=== PATIENT | male | born 1960 | race African-American/Black ===

== ENCOUNTER → 2016-10-29 | Outpatient (CLI) | payer MEDICARE, MEDICAID ==
[~2016-10-29] MED LIST: ASPI81TA21 PO; ATOR20TA PO; GLUCTAB PO; HYDR-3129 PO; IBUP800T23 PO; JANU100T PO; KETO2SHA5 TOP; LISI-360 PO; MOBI15TA PO; PRIL40CA PO; TIZA4 PO
[2016-10-29 11:56] LABS: ALKALINE PHOSPHATASE 73 U/L (45-117); ALT (GPT) 35 U/L (12-78); ANION GAP 8 MEQ/L (5-15); AST (GOT) 25 U/L (15-37); BICARBONATE 26.1 MEQ/L (21.0-32.0); BLOOD UREA NITROGEN 13 MG/DL (7-18); CHLORIDE 105 MEQ/L (98-107); GLOMERULAR FILTRATION RATE 111 ML/MIN (>89); GLUCOSE,FASTING 158 MG/DL (74-99); INDIRECT BILIRUBIN 0.4 MG/DL (0.0-0.8); POTASSIUM 3.7 MEQ/L (3.5-5.1); SODIUM (NA) 139 MEQ/L (136-145); TOTAL BILIRUBIN ADULT 0.5 MG/DL (0.2-1.0)
[2016-10-29 17:01] LABS: HEMOGLOBIN A1a 1.1 %; HEMOGLOBIN A1b 1.9 %; HEMOGLOBIN Ao 82.1 %; HEMOGLOBIN LA1C 2.4 %; HEMOGLOBIN P3 4.3 %
== END ==
LOC: CLAB 10:23
PROVIDERS: ATTEND Family Medicine Adult Medicine
DX: R73.09 Other abnormal glucose (principal); K72.91 Hepatic failure, unspecified with coma; E03.9 Hypothyroidism, unspecified; R19.5 Other fecal abnormalities; D56.5 Hemoglobin E-beta thalassemia
CPT/HCPCS: 36415; 80048; 80076; 83036; 84443

== ENCOUNTER → 2016-11-04 | Outpatient (CLI) | payer MEDICARE, MEDICAID | LOC: CLAB 13:07 | PROVIDERS: ATTEND Family Medicine Adult Medicine | DX: R19.5 Other fecal abnormalities (principal); R73.09 Other abnormal glucose; K72.91 Hepatic failure, unspecified with coma; E03.9 Hypothyroidism, unspecified; D56.5 Hemoglobin E-beta thalassemia; E11.9 Type 2 diabetes mellitus without complications | CPT/HCPCS: 82272 ==

== ENCOUNTER → 2017-01-08 | Outpatient (CLI) | payer MEDICARE, MEDICAID ==
[2017-01-08 09:05] LABS: AMPHETAMINE, URINE NEG (NEG); BARBITURATES, URINE NEG (NEG); COCAINE, URINE NEG (NEG)
[2017-01-08 09:14] LABS: ALKALINE PHOSPHATASE 64 U/L (45-117); ALT (GPT) 27 U/L (12-78); ANION GAP 7 MEQ/L (5-15); AST (GOT) 19 U/L (15-37); BICARBONATE 27.5 MEQ/L (21.0-32.0); BLOOD UREA NITROGEN 18 MG/DL (7-18); CHLORIDE 104 MEQ/L (98-107); GLOMERULAR FILTRATION RATE 80 ML/MIN (>89); GLUCOSE,FASTING 186 MG/DL (74-99); HDL CHOLESTEROL 53.8 MG/DL (40.0-60.0); LDL CHOLESTEROL 69 MG/DL (0-99); POTASSIUM 3.6 MEQ/L (3.5-5.1); SODIUM (NA) 138 MEQ/L (136-145); TOTAL BILIRUBIN ADULT 0.3 MG/DL (0.2-1.0)
[2017-01-08 13:49] LABS: HEMOGLOBIN A1a 1.5 %; HEMOGLOBIN A1b 1.9 %; HEMOGLOBIN Ao 81.7 %; HEMOGLOBIN LA1C 2.3 %
== END ==
LOC: CLAB 08:12
PROVIDERS: ATTEND Physician Assistant Medical
DX: E78.2 Mixed hyperlipidemia (principal); E78.00 Pure hypercholesterolemia, unspecified; E03.9 Hypothyroidism, unspecified; D56.5 Hemoglobin E-beta thalassemia; G89.4 Chronic pain syndrome; E11.9 Type 2 diabetes mellitus without complications; I25.10 Atherosclerotic heart disease of native coronary artery without angina pectoris; Z01.01 Encounter for examination of eyes and vision with abnormal findings; Z02.89 Encounter for other administrative examinations; Z79.891 Long term (current) use of opiate analgesic
CPT/HCPCS: 36415; 80053; 80061; 80307; 83036; 84443

== ENCOUNTER → 2017-04-09 | Outpatient (CLI) | payer MEDICARE, MEDICAID ==
[2017-04-09 16:06] LABS: ALT (GPT) 37 U/L (12-78); ANION GAP 9 MEQ/L (5-15); AST (GOT) 28 U/L (15-37); BICARBONATE 26.8 MEQ/L (21.0-32.0); BLOOD UREA NITROGEN 20 MG/DL (7-18); CHLORIDE 104 MEQ/L (98-107); GLOMERULAR FILTRATION RATE 84 ML/MIN (>89); GLUCOSE,FASTING 99 MG/DL (74-99); POTASSIUM 3.6 MEQ/L (3.5-5.1); SODIUM (NA) 140 MEQ/L (136-145)
[2017-04-09 16:08] LABS: ALKALINE PHOSPHATASE 64 U/L (45-117); HDL CHOLESTEROL 56.2 MG/DL (40.0-60.0); LDL CHOLESTEROL 107 MG/DL (0-99); TOTAL BILIRUBIN ADULT 0.6 MG/DL (0.2-1.0)
[2017-04-11 13:37] LABS: HEMOGLOBIN A1a 1.2 %; HEMOGLOBIN A1b 1.8 %; HEMOGLOBIN Ao 83.6 %; HEMOGLOBIN LA1C 1.3 %; HEMOGLOBIN P3 3.7 %
== END ==
LOC: CLAB 15:01
PROVIDERS: ATTEND Family Medicine
DX: E78.5 Hyperlipidemia, unspecified (principal); E11.9 Type 2 diabetes mellitus without complications; D56.5 Hemoglobin E-beta thalassemia; Z79.891 Long term (current) use of opiate analgesic; Z01.01 Encounter for examination of eyes and vision with abnormal findings
CPT/HCPCS: 36415; 80053; 80061; 83036

== ENCOUNTER → 2017-05-28 | Outpatient (CLI) | payer MEDICARE, MEDICAID ==
[2017-05-28 12:35] LABS: AUTOMATED NEUTROPHIL # 3.2 TH/MM3 (1.8-7.7); BASOPHIL % 0.4 % (0.0-2.0); EOSINOPHIL # 0.1 TH/MM3 (0-0.4); HEMATOCRIT 39.6 % (39.0-51.0); HEMO FLAGS DIFF FINAL; LYMPH % 29.1 % (9.0-44.0); LYMPHOCYTE # 1.6 TH/MM3 (1.0-4.8); MEAN CELL VOLUME 84.6 FL (80.0-100.0); MEAN CORPUSCULAR HEMOGLOBIN 28.4 PG (27.0-34.0); MEAN CORPUSCULAR HGB CONC 33.6 % (32.0-36.0); MONO % 8.7 % (0.0-8.0); NEUT % 59.8 % (16.0-70.0); PLATELET COUNT 153 TH/MM3 (150-450); RED BLOOD COUNT 4.68 MIL/MM3 (4.50-5.90); RED CELL DISTRIBUTION WIDTH 14.8 % (11.6-17.2); WHITE BLOOD COUNT 5.4 TH/MM3 (4.0-11.0)
[2017-05-28 12:57] LABS: ALT (GPT) 32 U/L (12-78); ANION GAP 9 MEQ/L (5-15); AST (GOT) 23 U/L (15-37); BICARBONATE 28.1 MEQ/L (21.0-32.0); BLOOD UREA NITROGEN 14 MG/DL (7-18); CHLORIDE 102 MEQ/L (98-107); GLOMERULAR FILTRATION RATE 95 ML/MIN (>89); GLUCOSE,FASTING 135 MG/DL (74-99); POTASSIUM 3.8 MEQ/L (3.5-5.1); SODIUM (NA) 139 MEQ/L (136-145)
[2017-05-28 13:22] LABS: ALKALINE PHOSPHATASE 65 U/L (45-117); HDL CHOLESTEROL 55.3 MG/DL (40.0-60.0); LDL CHOLESTEROL 90 MG/DL (0-99); TOTAL BILIRUBIN ADULT 0.6 MG/DL (0.2-1.0)
[2017-05-28 17:09] LABS: HEMOGLOBIN A1a 1.2 %; HEMOGLOBIN A1b 1.8 %; HEMOGLOBIN Ao 82.8 %; HEMOGLOBIN LA1C 2.1 %; HEMOGLOBIN P3 3.9 %
== END ==
LOC: CLAB 12:00
PROVIDERS: ATTEND Family Medicine
DX: E78.5 Hyperlipidemia, unspecified (principal); E11.9 Type 2 diabetes mellitus without complications; E78.00 Pure hypercholesterolemia, unspecified; D51.9 Vitamin B12 deficiency anemia, unspecified; D52.9 Folate deficiency anemia, unspecified; D56.5 Hemoglobin E-beta thalassemia; Z79.891 Long term (current) use of opiate analgesic; Z01.01 Encounter for examination of eyes and vision with abnormal findings
CPT/HCPCS: 36415; 80053; 80061; 82607; 82746; 83036; 85025

== ENCOUNTER → 2017-09-14 | Outpatient (CLI) | payer MEDICARE, MEDICAID ==
[2017-09-14 12:34] LABS: ALT (GPT) 22 U/L (12-78); ANION GAP 7 MEQ/L (5-15); AST (GOT) 13 U/L (15-37); BICARBONATE 27.9 MEQ/L (21.0-32.0); BLOOD UREA NITROGEN 15 MG/DL (7-18); CHLORIDE 104 MEQ/L (98-107); GLOMERULAR FILTRATION RATE 95 ML/MIN (>89); GLUCOSE,FASTING 201 MG/DL (74-99); POTASSIUM 3.8 MEQ/L (3.5-5.1); SODIUM (NA) 139 MEQ/L (136-145)
[2017-09-14 12:37] LABS: ALKALINE PHOSPHATASE 66 U/L (45-117); HDL CHOLESTEROL 66.8 MG/DL (40.0-60.0); LDL CHOLESTEROL 109 MG/DL (0-99); TOTAL BILIRUBIN ADULT 0.6 MG/DL (0.2-1.0)
[2017-09-14 17:24] LABS: HEMOGLOBIN A1a 1.2 %; HEMOGLOBIN A1b 1.1 %; HEMOGLOBIN F 1.4 %; HEMOGLOBIN LA1C 2.8 %; HEMOGLOBIN P3 4.6 %
== END ==
LOC: CLAB 11:41
PROVIDERS: ATTEND Family Medicine
DX: I10 Essential (primary) hypertension (principal); D56.5 Hemoglobin E-beta thalassemia; E78.5 Hyperlipidemia, unspecified; E11.9 Type 2 diabetes mellitus without complications
CPT/HCPCS: 36415; 80053; 80061; 83036

== ENCOUNTER 2017-10-04 11:34 | Emergency (ER) | payer MEDICARE, MEDICAID ==
[~2017-10-04] VITALS: Ht 175.3 cm; Wt 109.1 kg
[2017-10-04 11:35] VITALS: BP 156/91; PULSE 97; RESP 14; TEMP 98.1; O2SAT 99
--- NOTE | 2017-10-04 12:46 | PD ---
HPI Chief Complaint: Injury Time Seen by Provider: 12:19 Travel History International Travel<30 days: No Contact w/Intl Traveler<30days: No Traveled to known affect area: No History of Present Illness HPI 56-year-old male here with right hand pain after he hit a wall with the dorsal aspect of his hand several days ago. He reports normal sensation and full range of motion of the hand. He noticed the hand was swollen which bumped his visit today. Pain is constant, worse with movement of the fingers, slightly relieved with Motrin. Symptoms severity moderate. PFSH Past Medical History Hx Anticoagulant Therapy: Yes Arthritis: Yes Cardiovascular Problems: Yes Diabetes: Yes Patient Takes Glucophage: Yes Diminished Hearing: No Hypertension: Yes Musculoskeletal: Yes Tetanus Vaccination: < 5 Years Past Surgical History Cardiac Surgery: Yes (STENT PLACEMENT) Other Surgery: Yes (FATTY TUMOR REMOVED) Social History Alcohol Use: Yes Tobacco Use: No Substance Use: No Allergies-Medications (Allergen,Severity, Reaction): Coded Allergies: amoxicillin (Unverified Allergy, Severe, RASH, 10/04/17) cephalexin (Unverified Allergy, Severe, RASH, 10/04/17) Reported Meds & Prescriptions Reported Meds & Active Scripts Active Ibuprofen 800 Mg Tab 800 Mg PO TID 10 Days Reported Ketoconazole 2 % Sha 1 Applic TOP DAILY Zanaflex 4 mg (Tizanidine HCl) 4 Mg Tab 1 Tab PO Q8H Atorvastatin 20 mg tab (Atorvastatin Calcium) 20 Mg Tab 1 Tab PO DAILY 30 Days Prilosec 40 mg cap (Omeprazole) 40 Mg Cap 40 Mg PO DAILY Januvia (Sitagliptin Phosphate) 100 Mg Tab 100 Mg PO DAILY Aspir-Low (Aspirin) 81 Mg Tab 81 Mg PO DAILY Glucophage XR 24 HR (Metformin HCl) 500 Mg Tab 1,000 Mg PO BIDPC Lisinopril 10 mg (Lisinopril) 10 Mg Tab 10 Mg PO DAILY Review of Systems Except as stated in HPI: all other systems reviewed are Neg Physical Exam Narrative GENERAL: Alert male no distress. SKIN: Warm and dry. No open wounds or abrasions. HEAD: Normocephalic. EYES: No scleral icterus. No injection or drainage. NECK: Supple, trachea midline. No JVD or lymphadenopathy. MUSCULOSKELETAL: No cyanosis. RUE: Notable swelling and mild tenderness to the dorsal aspect of the right hand. No deformity. Patient has full range of motion and normal sensation of the hand and digits. Brisk cap Refill. Data Data Last Documented VS Vital Signs Date Time Temp Pulse Resp B/P (MAP) Pulse Ox O2 Delivery O2 Flow Rate FiO2 10/04/17 11:35 98.1 97 14 156/91 (112) 99 Orders Orders Hand, Complete ([id number]) (10/04/17 ) Ed Discharge Order (10/04/17 12:46) MDM Medical Decision Making Medical Screen Exam Complete: Yes Emergency Medical Condition: Yes Differential Diagnosis Contusion, sprain, metacarpal fracture Narrative Course 56-year-old male here with right hand pain after he a wall with the dorsal aspect of his hand several days ago. He reports normal sensation and full range of motion of the hand. He has notable swelling and tenderness over the metacarpals. No deformity. The extremity is neurovascularly intact. X-ray was negative for fracture. Patient be treated for contusion. Diagnosis Primary Impression: Contusion of right hand Qualified Codes: S60.221A - Contusion of right hand, initial encounter Referrals: Primary Care Physician Additional Instructions: Take 600-800 mg of ibuprofen every 6-8 hours as needed for pain. Ice and elevate the extremity. Follow-up with her doctor. Disposition: 01 DISCHARGE HOME Condition: Stable Cherise Figueredo Oct 04, 2017 12:46
--- NOTE | 2017-10-04 12:48 | RADRPT ---
EXAM DATE/TIME: 10/04/2017 12:27 [facility] COMPARISON: No previous studies available for comparison. INDICATIONS : Hit hand on concrete on Wednesday. MEDICAL HISTORY : Hypertension. Diabetes mellitus type II. SURGICAL HISTORY : None. ENCOUNTER: Initial ACUITY: 2 days PAIN SCORE: 10/10 LOCATION: Right palm. FINDINGS: Mild degenerative changes the radiocarpal joint. Anatomical alignment without fracture. CONCLUSION: Mild degenerative changes, Negative for fracture or dislocation. Follow up in 7-10 days is suggested if symptoms persist. Theodore Khan MD FACR on October 04, 2017 at 12:45 Board Certified Radiologist. This report was verified electronically.
== END 2017-10-04 13:30 | disposition home or self-care (01) ==
LOC: NEPK 11:34
DX: S60.221A Contusion of right hand, initial encounter (principal); E11.9 Type 2 diabetes mellitus without complications; I10 Essential (primary) hypertension; W22.01XA Walked into wall, initial encounter; Z79.84 Long term (current) use of oral hypoglycemic drugs
CPT/HCPCS: 73130; 99283

== ENCOUNTER → 2017-12-15 | Outpatient (CLI) | payer MEDICAID, MEDICARE ==
[~2017-12-15] MED LIST changes: -HYDR-3129 PO; -MOBI15TA PO
[2017-12-15 12:15] LABS: ALBUMIN 3.7 GM/DL (3.4-5.0); AST (GOT) 9 U/L (15-37); BICARBONATE 26.6 MEQ/L (21.0-32.0); BLOOD UREA NITROGEN 15 MG/DL (7-18); CALCIUM 8.9 MG/DL (8.5-10.1); CHLORIDE 105 MEQ/L (98-107); CREATININE 0.95 MG/DL (0.60-1.30); GLOMERULAR FILTRATION RATE 99 ML/MIN (>89); GLUCOSE,FASTING 195 MG/DL (74-99); SODIUM (NA) 138 MEQ/L (136-145)
[2017-12-15 12:16] LABS: ALT (GPT) 17 U/L (12-78); CHOLESTEROL 175 MG/DL (120-200); TRIGLYCERIDES 127 MG/DL (42-150)
[2017-12-15 12:18] LABS: ALKALINE PHOSPHATASE 69 U/L (45-117); HDL CHOLESTEROL 64.7 MG/DL (40.0-60.0); LDL CHOLESTEROL 85 MG/DL (0-99); TOTAL BILIRUBIN ADULT 0.7 MG/DL (0.2-1.0); TOTAL PROTEIN 7.4 GM/DL (6.4-8.2)
[2017-12-15 20:13] LABS: HEMOGLOBIN A1C 10.5 % (4.3-6.0)
== END ==
LOC: CLAB 12-13 14:40
PROVIDERS: ATTEND Family Medicine
DX: E78.00 Pure hypercholesterolemia, unspecified (principal); E11.9 Type 2 diabetes mellitus without complications; I10 Essential (primary) hypertension; Z79.891 Long term (current) use of opiate analgesic
CPT/HCPCS: 36415; 80053; 80061; 83036; 86703